=== PATIENT | male | born 1930 | race Caucasian/White ===

== ENCOUNTER → 2016-10-24 | Outpatient (CLI) | payer MEDICARE | LOC: GMAL 12:07 | PROVIDERS: ATTEND Family Medicine | DX: M10.9 Gout, unspecified (principal) ==

== ENCOUNTER → 2017-02-27 | Outpatient (CLI) | payer MEDICARE | END | disposition home or self-care (01) | LOC: GMAL 10:10 | PROVIDERS: ATTEND Family Medicine | DX: D51.3 Other dietary vitamin B12 deficiency anemia (principal); Z12.5 Encounter for screening for malignant neoplasm of prostate; R53.82 Chronic fatigue, unspecified; M10.9 Gout, unspecified; E55.9 Vitamin D deficiency, unspecified | CPT/HCPCS: 82306; 82607; 84443; 84550; G0103 ==

== ENCOUNTER → 2017-07-30 | Outpatient (CLI) | payer MEDICARE ==
[~2017-07-30] MED LIST: ceFAZolin SODIUM 2 GRAMS PREMI 2 GM in PREMIX BAG 1 BAG IVPB SCH
--- NOTE | 2017-07-30 14:52 | CT ---
EXAM DESCRIPTION: Lower Extremity: Computed Tomography. CLINICAL HISTORY: FRACTURE OF LEFT FEMORAL NECK COMPARISON: Radiographs left hip @ [facility] this morning. TECHNIQUE: Spiral, axial 5.0 mm scans through the left hip without contrast. Bone and soft tissue algorithm. Coronal and sagittal 2.0 mm reconstructions. Total Exam DLP: 519.4 mGy-cm. This exam was performed according to our departmental CT dose-optimization program which includes automated exposure control, adjustment of the mA and/or kV according to patient size and/or use of iterative reconstruction technique; to reduce radiation dose to as low as reasonably achievable (ALARA). FINDINGS: Impaction fracture on the posterior and lateral left subcapital femoral neck. The fracture is seen as a sclerotic band on the coronal image, but the medial and anterior cortex is intact. The trabecular are intact on the medial and anterior aspects of the femoral neck. No femoral head dislocation. Calcification of the acetabular labrum. Minimal narrowing of the superior joint space. Medial marginal spurs. No acetabular fracture. No fracture in the trochanteric region or sacrum trochanter femur. The included pelvic bones are intact. Vascular stent in the left external iliac artery. Vascular calcifications. IMPRESSION: Incomplete subcapital fracture of the left femoral neck with compression and cortical interruption on the posterior lateral aspect. Anterior lateral cortex is intact. No left femoral head dislocation. CRITICAL COMMUNICATION: The critical value was texted directly by phone to Dr. Bazzi at approximately 1303 hours, on 07/30/2017. Dr. Bazzi responded by text at 1307 hours. Electronically signed by: Marcus Ewing MD 07/30/2017 2:51 PM [facility]
== END | disposition home or self-care (01) ==
LOC: CT 12:12
PROVIDERS: ATTEND Family Medicine
DX: S72.009A Fracture of unspecified part of neck of unspecified femur, initial encounter for closed fracture (principal)

== ENCOUNTER 2017-07-31 08:12 | Inpatient (IN) | payer MEDICARE ==
[~2017-07-31 08:12] MED LIST changes: +DEXAMETHASONE INJ 10 MG/ML VIAL ONE; +LACTATED RINGERS 1,000 ML IVS ONE; +METOCLOPRAMIDE HCL INJ 10 MG/2 ML VIAL ONE; +MIDAZOLAM INJ 2 MG/2 ML VIAL ONE; +PROPOFOL 200 MG/20 ML VIAL IV ONE; -ceFAZolin SODIUM 2 GRAMS PREMI 2 GM in PREMIX BAG 1 BAG IVPB SCH; +fentaNYL CITRATE INJ 50 MCG/ML AMP ONE
[2017-07-31] MEDS ORDERED: LACTATED RINGERS 1,000 ML ONE (08:18)
[2017-07-31] MEDS ORDERED: TRANEXAMIC ACID 1,000 MG/10 ML VIAL ONE (08:18)
[2017-07-31] MEDS ORDERED: SODIUM CHL 0.9% 100ML MINI-BAG 100 ML IVPB ONE (08:18)
[2017-07-31] MEDS ORDERED: VANCOMYCIN HCL INJ 1,000 MG VIAL IVPB ONE (08:21)
[2017-07-31] MEDS ORDERED: SODIUM CHLORIDE 0.9% 250ML 250 ML ONE (08:21)
[2017-07-31] MEDS ORDERED: ceFAZolin SODIUM 1 GM VIAL ONE (08:48)
[2017-07-31] MEDS ORDERED: BUPIVACAINE 0.25% W/EPI 50 ML VIAL INJ ONE (08:48)
[2017-07-31] MEDS: ceFAZolin SODIUM 1 GM VIAL ONE ×3 (09:27→10:25)
[2017-07-31] MEDS: VANCOMYCIN HCL INJ 1,000 MG VIAL IVPB ONE ×2 (10:06→10:25)
--- NOTE | 2017-07-31 12:19 | HP ---
SUPERVISING PHYSICIAN: Alexander Herman MD CHIEF COMPLAINT: Left hip pain. HISTORY OF PRESENT ILLNESS: This is an 87 year-old male patient who went to the grocery store on July 15 and became off balance and fell and hit is hip on his steps at his home. He was able to get up, he was walking on it and had no problems other than pain. Several days later he went to see ÁLVARO Reyes at [facility] and an x-ray was done of that leg hip. When he saw Megan Brooks, the x-ray was negative for any fractures but he continued to have pain off and on. He went to see his primary care physician, Dr. Todd Bazzi. His hip was re- x-rayed and there was found to be what was thought to be a hairline fracture on the hip and a CT of the hip was completed. Per radiology interpretation, the CT showed an incomplete subcapital fracture of the left femoral neck with compression and cortical interruption on the posterolateral aspect. Anterolateral is intact, no left femoral head dislocation. Dr. Bazzi called Dr. Tavares who agreed to do his surgery this morning. He was admitted to the hospital this morning for a gamma nail to the left hip. I am seeing the patient postoperatively after his gamma nail. PAST MEDICAL HISTORY: 1. Atrial fibrillation. 2. Carotid artery stenosis. 3. Coronary artery disease. 4. Hyperlipidemia. 5. Hypertension. 6. Peripheral vascular disease. 7. Gout. 8. Chronic renal insufficiency. PAST SURGICAL HISTORY: None. CURRENT MEDICATIONS: Per the EMR and awaiting verification. ALLERGIES: 1. Enablex. 2. Fosamax. 3. Lamisil. 4. Lavendel. 5. Skelaxin. 6. Uroxatral. FAMILY HISTORY: SOCIAL HISTORY: He is . He lives in [place]. 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 He has a past history of cigarette smoking. He quit in 2006. He drinks alcohol rarely. REVIEW OF SYSTEMS: 10-point review of systems is negative except as per history of present illness. PHYSICAL EXAMINATION: VITAL SIGNS: Temperature - he is afebrile. Heart rate 99. Blood pressure 179 /78, respiratory rate 17, 02 saturation 98% on room air. GENERAL: This is an 87 year-old male patient who is sitting up in his hospital bed. He is in no acute distress. HEENT: Normocephalic and atraumatic. Pupils are equal and reactive. Oropharynx is clear. NECK: Supple without mass. CHEST: Clear to auscultation bilaterally. Chest has equal rise and fall with inspiration and expiration. CARDIOVASCULAR: Regular rate and rhythm. ABDOMEN: Soft, nondistended, non-tender. Bowel sounds are positive. EXTREMITIES: He has a dressing to the left hip that his dry and intact. His bilateral pedal pulses are palpable at +2. There is no swelling or cyanosis to his lower extremities. NEUROLOGIC: He is awake, alert, and oriented x3. LABORATORY: WBC 8.8 with hemoglobin of 12.5 hematocrit 37.3. PT is 14.5 with an INR of 1.2 and PTT of 32.8. Sodium 140, potassium 4.2, chloride 109, carbon dioxide 22, anion gap 13.2, BUN 25, creatinine 2.28. Calcium 10.6. Urinalysis is basically within normal limits. All other labs and films have been reviewed via the EMR. ASSESSMENT: 1. Postoperative #0 gamma nail of the left hip status post same level fall on July 15, 2017. 2. Atrial fibrillation. 3. Peripheral vascular disease. 4. Coronary artery disease. 5. Hypertension. 6. Hyperlipidemia. 7. Carotid artery stenosis. 8. Gout. 9. Chronic renal insufficiency with baseline creatinine of 2.2. PLAN: I have admitted the patient to the hospital. I have continued Dr. Tavares' s postoperative hip orders. He will now be placed on Lovenox or Xarelto as he is on Eliquis and his Eliquis should be adequate for his DVT prophylaxis. He will begin his physical therapy for strengthening and conditioning tomorrow. We will decide on a possible discharge date after I speak with Dr. Tavares as well as physical therapy. He will need physical therapy after he is out of the hospital and we will discuss that, I have consulted [facility] as well. I have restarted his home medications. Otherwise, we will continue to monitor the patient closely and follow as needed. Dr. Herman is the collaborating physician and available for consultation. #[id number] [facility]
[2017-07-31] MEDS ORDERED: MORPHINE SULFATE INJ 10 MG/ML VIAL IV PRN (14:13)
[2017-07-31] MEDS ORDERED: SODIUM CHLORIDE 0.9% (FLUSH) 10 ML SYG IV PRN (14:13)
[2017-07-31] MEDS ORDERED: ACETAMINOPHEN 500 MG TAB PO PRN (14:13)
[2017-07-31] MEDS ORDERED: PROMETHAZINE HCL INJ 25 MG in SODIUM CHLORIDE 0.9% 50ML 50 ML IVPB PRN (14:13)
[2017-07-31] MEDS ORDERED: MORPHINE SULFATE INJ 10 MG/ML VIAL IM PRN (14:13)
[2017-07-31] MEDS ORDERED: ONDANSETRON INJ 4 MG/2 ML VIAL IV PRN (14:13)
[2017-07-31] MEDS ORDERED: NALOXONE HCL INJ 0.4 MG/ML VIAL IV PRN (14:13)
[2017-07-31] MEDS ORDERED: PROMETHAZINE HCL INJ 12.5 MG in SODIUM CHLORIDE 0.9% 50ML 50 ML IVPB PRN (14:13)
[2017-07-31] MEDS ORDERED: MORPHINE PCA 1 MG/ML 100ML 1 BAG in PREMIX BAG 1 BAG IVPB SCH (14:30)
[2017-07-31] MEDS ORDERED: IV SET AND CAP CHANGE INJ INJ SCH (14:30)
[2017-07-31] MEDS ORDERED: ceFAZolin SODIUM 2 GRAMS PREMI 50 ML IVPB ONE ×2 (15:31→19:53)
[2017-07-31] MEDS: ceFAZolin SODIUM 2 GRAMS PREMI 2 GM in PREMIX BAG 1 BAG IVPB SCH (15:47)
[2017-07-31] MEDS ORDERED: ceFAZolin SODIUM 1 GM in SODIUM CHL 0.9% 50ML MIN-BAG+ 50 ML IVPB SCH (16:00)
[2017-07-31] MEDS: FAMOTIDINE 20 MG TAB PO SCH (17:03)
[2017-07-31] MEDS ORDERED: VANCOMYCIN HCL INJ 1,000 MG in SODIUM CHLORIDE 0.9% 250ML 250 ML IVPB SCH (18:00)
[2017-07-31] MEDS ORDERED: APIXABAN 2.5 MG TAB PO ONE (19:53)
[2017-07-31] MEDS: ATORVASTATIN 10 MG TAB PO SCH (20:47)
[2017-07-31] MEDS: DOCUSATE CALCIUM 240 MG CAP PO SCH (20:47)
[2017-07-31] MEDS: APIXABAN 2.5 MG TAB PO SCH ×2 (20:48→22:36)
[2017-07-31] MEDS ORDERED: ENOXAPARIN SODIUM 30 MG/0.3 ML SYG SUBCU SCH (23:00)
[2017-08-01] MEDS: ceFAZolin SODIUM 2 GRAMS PREMI 2 GM in PREMIX BAG 1 BAG IVPB SCH ×2 (00:23→08:16)
[2017-08-01] MEDS: FAMOTIDINE 20 MG TAB PO SCH ×2 (06:15→16:59)
--- NOTE | 2017-08-01 07:33 | RAD ---
EXAM DESCRIPTION: Hip,Left 2 Views CLINICAL HISTORY: POSTOP COMPARISON: July 31, 2017 at 1114 hours. FINDINGS: 2 views of the left hip. Proximal intramedullary nail is present with transfixing plate and for subcapital femoral neck fracture that is nondisplaced. Near-anatomic alignment is noted. No postsurgical complication is demonstrated. Usual surgical changes noted within the soft tissues. Visualized left hemipelvis is unremarkable. IMPRESSION: Normal postoperative findings. Electronically signed by: Jani Bryan MD 08/01/2017 7:32 AM [facility]
--- NOTE | 2017-08-01 07:34 | RAD ---
EXAM DESCRIPTION: Chest,1 View CLINICAL HISTORY: BASELINE POSTOP COMPARISON: None FINDINGS: Portable frontal view the thorax. No consolidation, effusion or pneumothorax is demonstrated. Usual age-related lung changes. Heart and mediastinum within normal limits. Thoracic aortic calcifications atherosclerosis with ectasia. No acute osseous pathology. IMPRESSION: Negative portable chest. Electronically signed by: Jani Bryan MD 08/01/2017 7:33 AM [facility]
--- NOTE | 2017-08-01 07:54 | RAD ---
EXAM DESCRIPTION: Pelvis CLINICAL HISTORY: POSTOP COMPARISON: CT July 30, 2017. FINDINGS: Single frontal view the pelvis. Pelvic ring is intact. SI joints and sacral struts are intact. Recent surgical changes associated with left-sided subcapital femoral neck fracture repair. No complicating process is demonstrated. Contralateral right hip is intact. Advanced sequelae of atherosclerotic disease noted. Degenerative changes in the lumbar spine. No advanced osteoarthrosis of the bilateral hips. IMPRESSION: Normal left hip postoperative findings. Electronically signed by: Jani Bryan MD 08/01/2017 7:53 AM [facility]
[2017-08-01] MEDS ORDERED: SODIUM CHLORIDE 0.9% 250ML 250 ML ONE (08:03)
[2017-08-01] MEDS ORDERED: ceFAZolin SODIUM 2 GRAMS PREMI 50 ML IVPB ONE (08:04)
[2017-08-01] MEDS ORDERED: VANCOMYCIN HCL INJ 1,000 MG VIAL IVPB ONE (08:04)
[2017-08-01] MEDS: FINASTERIDE 5 MG TAB PO SCH (08:16)
[2017-08-01] MEDS: METOPROLOL SUCCINATE XL 50 MG TAB PO SCH (08:16)
[2017-08-01] MEDS: APIXABAN 2.5 MG TAB PO SCH ×2 (08:17→21:10)
[2017-08-01] MEDS: MAGNESIUM OXIDE 400 MG TAB PO SCH (08:17)
--- NOTE | 2017-08-01 08:48 | PN ---
DATE: 08/01/17 SUBJECTIVE: He is doing well today and his pain is significantly improved. OBJECTIVE: Afebrile. Vital signs stable. Dressing is clean, dry and intact. ASSESSMENT: Status post Gamma nail. PLAN: The plan at this point is for him to begin partial weight-bearing today. [facility][id number] [facility]
[2017-08-01] MEDS ORDERED: VANCOMYCIN HCL INJ 1,000 MG in SODIUM CHLORIDE 0.9% 250ML 250 ML IVPB SCH (09:00)
[2017-08-01] MEDS: NON-FORMULARY MEDICATION 1 EA MIS (Febuxostat [Uloric] 40 MG) PO SCH (09:02)
--- NOTE | 2017-08-01 09:33 | OP ---
DATE OF PROCEDURE: 07/31/17 PREOPERATIVE DIAGNOSIS: 1. Left subcapital femoral neck hip fracture. POSTOPERATIVE DIAGNOSIS: 1. Left subcapital femoral neck hip fracture. PROCEDURE: 1. Gamma nailing. SURGEON: Tyler Tavares MD. SALESPERSON SHOES: Marcus Golden CST, SA-C. ANESTHESIA: General. COMPLICATIONS: None. FINDINGS: Subcapital femoral neck fracture. INDICATION: Mr. Rodriguez has a history of a fall that occurred a little bit over two weeks ago. He had the onset of pain at that time. He presented to Dr. Bazzi and Dr. Bazzi took x-rays. The x-rays were concerning for fracture. CT scan was obtained and there was indeed a fracture. I talked with Mr. Rodriguez' family regarding the findings and the options as well. Given the nature of his fracture, I felt that it would be reasonable to attempted multiple different things if he wanted, so he was given the option of closed treatment, percutaneous screws, Gamma nailing or hemiarthroplasty. After discussed the risks, benefits and alternatives to each one inclusive of the fact that the fracture still had to heal regardless of the type of surgical intervention other than hemiarthroplasty, the chose to undergo Gamma nailing. Again, they were counseled to the fact that Gamma nailing could result in nonunion, however , it could also provide stability for the fracture to heal. PROCEDURE: The patient was brought to the Operating Room and placed in the supine position. General anesthesia was administered and the patient was placed on the fracture table. The fracture was provisionally reduced under fluoroscopic imaging and after reduction, the leg and hemipelvis were sterilely prepped and draped. An incision was made just proximal to the greater trochanter and dissection was carried through the iliotibial band and down to the greater trochanter. A starting pin was placed and a one-step reamer was used to open the femoral canal. A 125 degree angled Gamma nail was inserted into the canal to the appropriate level. A guide pin was placed from the lateral cortex into the femoral head. The appropriate length compression screw was measured and inserted with the placement guided under direct imaging. Following that, the distal locking screw was drilled, measured, and placed under imaging. The proximal locking screw was placed through the outrigger into the top of the nail and the outrigger removed. The final construct was imaged and the wounds were thoroughly irrigated, followed by closure with Monocryl suture. Sterile dressings were placed. The patient was awoken from anesthesia and taken to the Recovery Room. POSTOPERATIVE INSTRUCTIONS: He will be partial weight-bearing on postoperative day 1. [facility][id number] [facility]
--- NOTE | 2017-08-01 15:55 | PN ---
DATE: 08/01/17 SUPERVISING PHYSICIAN: Alexander Herman M.D. SUBJECTIVE: The patient is sitting up in his chair in his room. He is talking to his . Physical Therapy is in the room. He has no complaints of shortness of breath, chest pain nausea, vomiting or diarrhea. He says he is ready to go home. OBJECTIVE: VITAL SIGNS: He is afebrile, heart rate 88, blood pressure 159/90, respiratory rate 20, O2 sat is 95% on room air. RESPIRATORY: Essentially clear to auscultation bilaterally. CARDIAC: Regular rate and rhythm. EXTREMITIES: He has a dressing to his left hip that is dry and intact. Bilateral pedal pulses are palpable at +2. NEUROLOGIC: He is awake, alert and oriented times three. LABORATORY: H&H is 11.7 and 35.2. All other labs and films have been reviewed via the EMR. ASSESSMENT: 1. Postoperative #1 gamma nail of the left hip status post same level fall on July 15, 2017. 2. Atrial fibrillation on Eliquis. 3. Peripheral vascular disease. 4. Coronary artery disease. 5. Hypertension on Metoprolol. 6. Hyperlipidemia. 7. Carotid artery stenosis. 8. Gout. 9. Chronic renal insufficiency with baseline creatinine of 2.2. PLAN: We will continue present supportive care. He will continue with physical therapy for strengthening and conditioning. Any orthopedic issues will be per Dr. Tavares. His postoperative anticoagulant is Eliquis. He is on Eliquis as a home medication and it is sufficient for his anticoagulation therapy for DVT prophylaxis. There is still some question as to his discharge planning. There were plans for him to have home health but the patient was telling that his son was staying with him for his therapy and we will need to clarify that to make sure that he has adequate physical therapy after discharge as well as safety, and continuing care. His blood pressure has been a little bit high and I am not going to adjust his medications for now, but he may need them slightly adjusted before he leaves. Otherwise we will continue to follow the patient closely and follow as needed. Dr. Herman is the collaborating physician available for consultation. #[id number] [facility]
[2017-08-01] MEDS: DOCUSATE CALCIUM 240 MG CAP PO SCH (21:09)
[2017-08-01] MEDS: ATORVASTATIN 10 MG TAB PO SCH (21:10)
[2017-08-02] MEDS: FAMOTIDINE 20 MG TAB PO SCH (06:48)
[2017-08-02] MEDS: METOPROLOL SUCCINATE XL 50 MG TAB PO SCH (08:01)
[2017-08-02] MEDS: NON-FORMULARY MEDICATION 1 EA MIS (Febuxostat [Uloric] 40 MG) PO SCH (08:01)
[2017-08-02] MEDS: APIXABAN 2.5 MG TAB PO SCH (08:01)
[2017-08-02] MEDS: MAGNESIUM OXIDE 400 MG TAB PO SCH (08:01)
[2017-08-02] MEDS: FINASTERIDE 5 MG TAB PO SCH (08:01)
[2017-08-02] MEDS ORDERED: SODIUM CHLORIDE 0.9% (FLUSH) 10 ML SYG IV SCH (09:00)
[2017-08-02] MEDS ORDERED: amLODIPine BESYLATE 5 MG TAB ONE (10:29)
[2017-08-02] MEDS ORDERED: amLODIPine BESYLATE 5 MG TAB PO SCH (10:30)
[2017-08-02 10:35] VITALS: BP 168/75; TEMP 98.1; O2SAT 98
--- NOTE | 2017-08-03 12:06 | DS ---
SUPERVISING PHYSICIAN: Alexander Herman M.D. DISCHARGE DIAGNOSIS: 1. Postoperative day 2 for gamma nail of the left hip status post same level fall on July 15, 2017. 2. Atrial fibrillation with controlled ventricular rate on Eliquis. 3. Peripheral vascular disease. 4. Coronary artery disease. 5. Hypertension on Metoprolol and meeting requirements of additional medication regimen with Amlodipine. 6. Hyperlipidemia. 7. Carotid artery stenosis. 8. Gout. 9. Chronic renal insufficiency with baseline creatinine of 2.2. REASON FOR HOSPITALIZATION: Mr. Rodriguez is an 87 year-old male patient of Dr. Bazzi. In the past week, he had gone to the grocery store on July 15 and became off balance and fell and hit is hip on his steps at his home. He was able to get up, he was walking around with no problems other than pain. Several days later he went to see ÁLVARO Reyes at [facility] and x-rays were done of the left hip. The radiologist at that time reported negative for any fractures but the patient continued to have pain off and on therefore mike went to his primary care physician later in the week, Dr. Todd Bazzi. He was re -x-rayed of the hip and there was note of a hairline fracture of the hip with CT recommended. Per radiology interpretation, the CT showed an incomplete subcapital fracture of the left femoral neck with compression and cortical interruption on the posterolateral aspect. The anterolateral was noted to be intact. There was no left femoral head dislocation. Dr. Bazzi then called Dr. Tavares who agreed to do his surgery on the morning after admission, 08/01/17. He was then directly admitted to the hospital on the morning of surgery for a gamma nail to the left hip. LABORATORY: CBC on admission showed white count 8,300, hemoglobin 12.5, hematocrit 37.3, platelet count 236,000. Differential showed within normal limits. Postoperative H&H was 11.7 and 35.2. Coagulation studies showed just a slightly elevated PT of 14.5, PTT was normal at 32.8. Chemistries on admission showed to be within normal limits with potassium 4.2, BUN 45, creatinine 2.28 which is close to his baseline renal function. Urinalysis initially on admission showed trace of blood and after placement of a Ku there was noted 15 of ketones, small amount of blood with 20 to 30 RBCs, 1 to 3 WBCs but no bacteria. MICROBIOLOGY: MRSA surveillance culture shows to be negative after 48 hours. RADIOLOGY: Initial hip x-ray on 07/31 showed normal postoperative findings. Pelvis x-ray postoperatively showed normal left hip postoperative findings. Chest x-ray was also completed on the morning prior to surgery and per radiology interpretation was negative portable chest. HOSPITAL COURSE: Mr. Rodriguez was admitted on 07/31/17 for gamma nail as noted above of the left hip. He was immediately seen in postoperative state in stable condition. He progressed well through his physical therapy and had no complications, and was felt to have met his goal, therefore he was planned to be discharged on 08/02/17. On the day of discharge it was noted that he had been hypertensive through the entire stay with blood pressure on the morning of discharge noted to be 190/91 with pulse of 75. He did have a maximum pressure initially on admission which was probably contributed to pain at 211/106. Given that he had continued elevation of blood pressure, I added a calcium channel siva in the form of Amlodipine 5 mg which he tolerated well and had good control of his blood pressure at the time he left. Blood pressure was down to 168/75 with pulse rate 69. Condition at discharge was stable and improved. PLAN: Mr. Rodriguez was discharged on 08/02/17 with instructions to have close clinical followup with Dr. Tavares as scheduled and to have physical therapy started at home through [facility]. He was to followup with Dr. Bazzi in 7 to 10 days to have his blood pressure rechecked and medication adjustment. He was to resume his home medications as directed. He was to keep a daily blood pressure log and take his blood pressure in the morning and at bedtime. He was instructed to bring his blood pressure log with him back into Dr. Bazzi' followup appointment. He was told to return to the hospital should he have any concerning symptoms or call Dr. Bazzi or Dr. Tavares. NEW MEDICATIONS: 1. Amlodipine 5 mg daily, #30. All other medications prior to hospitalization were continued. Pain management was with Lane 5/[address]on [address]. Tavares did not have in his possession a Schedule 2 prescription pad. Diet was regular diet as tolerated. Activity is as per physical therapy, to walk with a walker. Wound care was no tub baths. May shower and follow directions per Dr. Tavares's postoperative care. Condition at discharge was stable and improved. #[id number] [facility]
[2017-08-03] MEDS ORDERED: MAGNESIUM HYDROXIDE 30 ML UD PO ONE (21:00)
[2017-08-03] MEDS ORDERED: BISACODYL SUPPOSITORY 10 MG PR ONE (21:00)
== END 2017-08-02 12:51 | disposition home health service (06) | DRG 482 ==
LOC: AMB 08:12 → MS 12:18
PROVIDERS: ADMIT Orthopaedic Surgery; ATTEND Orthopaedic Surgery
PROC: 0QS706Z Reposition Left Upper Femur with Intramedullary Internal Fixation Device, Open Approach (ICD-10-PCS; principal; 2017-07-31 07:00)
DX: S72.012A Unspecified intracapsular fracture of left femur, initial encounter for closed fracture (principal); I25.10 Atherosclerotic heart disease of native coronary artery without angina pectoris; I25.2 Old myocardial infarction; M10.9 Gout, unspecified; I12.9 Hypertensive chronic kidney disease with stage 1 through stage 4 chronic kidney disease, or unspecified chronic kidney disease; N28.9 Disorder of kidney and ureter, unspecified; I48.91 Unspecified atrial fibrillation; I73.9 Peripheral vascular disease, unspecified; E78.5 Hyperlipidemia, unspecified; I65.29 Occlusion and stenosis of unspecified carotid artery; W01.198A Fall on same level from slipping, tripping and stumbling with subsequent striking against other object, initial encounter; Y93.9 Activity, unspecified; Y92.009 Unspecified place in unspecified non-institutional (private) residence as the place of occurrence of the external cause; Y99.9 Unspecified external cause status; Z88.8 Allergy status to other drugs, medicaments and biological substances; Z87.891 Personal history of nicotine dependence; Z95.820 Peripheral vascular angioplasty status with implants and grafts; Z79.02 Long term (current) use of antithrombotics/antiplatelets; Z79.899 Other long term (current) drug therapy

== ENCOUNTER → 2017-08-13 | Outpatient (CLI) | payer MEDICARE | LOC: NC 11:10 | PROVIDERS: ATTEND Family Medicine | DX: R30.0 Dysuria (principal) ==

== ENCOUNTER → 2017-08-14 | Outpatient (CLI) | payer MEDICARE ==
--- NOTE | 2017-08-16 13:54 | RAD ---
Two views of the left hip. INDICATION: Closed fracture of the neck of femur. COMPARISON: Left hip radiographs from 07/31/2017. FINDINGS: Visualized osseous structures are moderately demineralized. Interlocking mark and screw fixation of the left femur identified, stable without signs of hardware failure or loosening. Minimal residual fracture deformity identified, similar to prior. No acute fracture, dislocation or suspicious osseous lesions are identified. There are vascular calcifications. Soft tissues have a normal radiographic appearance. IMPRESSION: Stable postoperative findings of the left hip. No acute osseous abnormality appreciated. Electronically signed by: Hoang Mcdowell MD 08/16/2017 1:53 PM [facility] Workstation: [id number]
== END ==
LOC: RAD 09:09
PROVIDERS: ATTEND Orthopaedic Surgery
DX: S72.002D Fracture of unspecified part of neck of left femur, subsequent encounter for closed fracture with routine healing (principal)

== ENCOUNTER → 2017-09-08 | Outpatient (CLI) | payer MEDICARE ==
--- NOTE | 2017-09-08 10:47 | RAD ---
LEFT HIP HISTORY: S72.002D FRACTURE OF UNSPECIFIED PART OF NECK OF LEFT FEMUR COMPARISON: August 14, 2017 FINDINGS: Two views of hip joint demonstrate stable changes of prior ORIF along proximal femur. Cannulated screw and associated intramedullary mark, and fixation screw, are all intact with stable alignment. Femoral head contour is maintained without collapse nor avascular necrosis. No bony injury identified in remainder of visualized left hemipelvis or proximal left femur. Vascular stents again seen in the left common iliac region. IMPRESSION: Stable postsurgical changes in left hip. No acute bony injury in left hip nor remainder of visualized pelvis. Electronically signed by: Zane Jean MD 09/08/2017 10:46 AM [facility]
== END ==
LOC: RAD 09:33
PROVIDERS: ATTEND Orthopaedic Surgery
DX: S72.002D Fracture of unspecified part of neck of left femur, subsequent encounter for closed fracture with routine healing (principal); Z98.890 Other specified postprocedural states

== ENCOUNTER → 2017-10-10 | Outpatient (CLI) | payer MEDICARE ==
--- NOTE | 2017-10-11 09:37 | RAD ---
EXAM DESCRIPTION: Hip,Left 2 Views CLINICAL HISTORY: 87 years, Male, CLOSED FX OF NECK OF FEMUR COMPARISON: Previous study September 08, 2017 TECHNIQUE: AP and frog leg lateral views of the left hip FINDINGS: 2 views of the left hip reveal no acute fracture or dislocation. Orthopedic hardware in the proximal left femur is seen with deformity of the left femoral neck noted on the frog-leg lateral view suggesting old healed fracture. Vascular stent in the left pelvis is present. There is vascular calcification of the common femoral and superficial femoral artery. No lytic bone lesion. Compared to previous study, no change is evident. IMPRESSION: Negative for acute fracture or dislocation. Electronically signed by: Eric Ho MD 10/11/2017 9:36 AM CDT
== END ==
LOC: RAD 09:09
PROVIDERS: ATTEND Orthopaedic Surgery
DX: S72.002D Fracture of unspecified part of neck of left femur, subsequent encounter for closed fracture with routine healing (principal)

== ENCOUNTER → 2017-11-04 | Outpatient (CLI) | payer MEDICARE | LOC: NC 08:13 | PROVIDERS: ATTEND Family Medicine | DX: I48.0 Paroxysmal atrial fibrillation (principal); I25.10 Atherosclerotic heart disease of native coronary artery without angina pectoris; E03.9 Hypothyroidism, unspecified; D51.9 Vitamin B12 deficiency anemia, unspecified; I12.9 Hypertensive chronic kidney disease with stage 1 through stage 4 chronic kidney disease, or unspecified chronic kidney disease; N18.9 Chronic kidney disease, unspecified; M10.9 Gout, unspecified; D63.1 Anemia in chronic kidney disease ==

== ENCOUNTER → 2017-11-28 | Outpatient (CLI) | payer MEDICARE ==
--- NOTE | 2017-11-28 16:23 | RAD ---
EXAM DESCRIPTION: Hip,Left 2 Views CLINICAL HISTORY: 87 years Male, CLOSED FX OF NECK OF FEMUR COMPARISON: Radiographs dated 10/10/2017. FINDINGS: The visualized bones are well-mineralized.No acute fracture or dislocation. Intact hardware traversing the left femur. The soft tissues appear grossly unremarkable. IMPRESSION: Intact hardware traversing the left femur. No acute abnormality. Electronically signed by: Chantelle Ambriz MD 11/28/2017 4:22 PM CDT
== END ==
LOC: RAD 07:37
PROVIDERS: ATTEND Orthopaedic Surgery
DX: S72.002D Fracture of unspecified part of neck of left femur, subsequent encounter for closed fracture with routine healing (principal)

== ENCOUNTER → 2018-01-09 | Outpatient (CLI) | payer MEDICARE ==
--- NOTE | 2018-01-09 09:02 | RAD ---
EXAM DESCRIPTION: Hip,Left 2 Views CLINICAL HISTORY: 87 years, Male, CLOSED FRACTURE OF NECK OF FEMUR COMPARISON: Previous study November 28, 2017 TECHNIQUE: AP and frog leg lateral views of the left hip FINDINGS: 2 views of the left hip reveal orthopedic hardware traversing left femoral neck and intratrochanteric region. No fracture is seen on the present study. Vascular calcifications are present. Somewhat prominent trabecular pattern is consistent with osteopenia. Correlate with bone densitometry findings.. No lytic bone lesion. There is no joint space abnormality observed. No change compared to the previous study. IMPRESSION: Orthopedic hardware in the proximal left femur. Electronically signed by: Eric Ho MD 01/09/2018 9:00 AM CDT
== END ==
LOC: RAD 08:16
PROVIDERS: ATTEND Orthopaedic Surgery
DX: S72.002D Fracture of unspecified part of neck of left femur, subsequent encounter for closed fracture with routine healing (principal)

== ENCOUNTER → 2018-04-07 | Outpatient (CLI) | payer MEDICARE | LOC: NC 08:42 | PROVIDERS: ATTEND Family Medicine | DX: I48.0 Paroxysmal atrial fibrillation (principal); I25.10 Atherosclerotic heart disease of native coronary artery without angina pectoris; I12.9 Hypertensive chronic kidney disease with stage 1 through stage 4 chronic kidney disease, or unspecified chronic kidney disease; D63.1 Anemia in chronic kidney disease; I73.9 Peripheral vascular disease, unspecified; N40.1 Benign prostatic hyperplasia with lower urinary tract symptoms; E55.9 Vitamin D deficiency, unspecified; D51.3 Other dietary vitamin B12 deficiency anemia; E78.4 Other hyperlipidemia; Z12.5 Encounter for screening for malignant neoplasm of prostate | CPT/HCPCS: 80053; 80061; 81001; 82306; 84443; 84550; 85025; 87086; G0103 ==